=== PATIENT | male | born 1935 | race Caucasian/White ===

== ENCOUNTER 2020-05-11 07:55 | Observation (INO) ==
[2020-05-11] MEDS ORDERED: 0.9 % Sodium Chloride 1,000 ML IVC ONE (08:03)
[2020-05-11 08:44] LABS: Basophils % 0.3 %; Eosinophils # 0.2 K/mcL (0.0-0.6); Eosinophils % 2.5 %; Hemoglobin 11.9 g/dL (12.9-16.9); Immature Granulocytes % 0.4 % (0-4); Lymphocytes # 1.7 K/mcL (0.6-4.6); Lymphocytes % 22.7 %; Mean Corpuscular HGB Conc 32.2 g/dL (31.6-35.5); Mean Corpuscular Hemoglobin 30.9 pg (28.0-33.3); Mean Corpuscular Volume 96.1 fL (83.0-100.0); Mean Platelet Volume 9.7 fL (9.4-12.4); Monocytes # 0.5 K/mcL (0.0-1.3); Neutrophils # 5.2 K/mcL (1.6-8.9); Platelet Count 265 K/mcL (140-400); Red Blood Count 3.85 M/mcL (4.19-5.50); Red Cell Distribution Width 12.6 % (11.5-14.5); Segmented Neutrophils % 68.1 %; White Blood Count 7.6 K/mcL (4.3-11.1)
[2020-05-11 08:45] LABS: VBG HCO3 23 mEq/L (21-27); VBG Ionized Calcium 1.12 mmol/L (1.15-1.35); VBG PCO2 44 mmHg (41-51); VBG PH 7.32 pH Units (7.32-7.42); VBG PO2 30 mmHg (25-50)
[2020-05-11 09:00] LABS: BUN/Creatinine Ratio 18 (6-26); Blood Urea Nitrogen 27 mg/dL (8-23); Calcium 9.2 mg/dL (8.6-10.3); Carbon Dioxide 20 mEq/L (23-29); Chloride 105 mEq/L (98-107); Creatine Kinase 57 Units/L (30-223); Glucose 141 mg/dL (70-105); Magnesium 1.6 mg/dL (1.6-2.6); Osmolality,Calculated 289 (280-300); Phosphorous 3.5 mg/dL (2.7-4.5); Potassium 4.2 mEq/L (3.5-5.1); Sodium 136 mEq/L (136-145); Troponin I < 0.03 ng/mL (< 0.04); eGFR For African Americans 52 (> 60); eGFR For Non-African Americans 43 (> 60)
[2020-05-11 09:07] LABS: Alanine Aminotransferase 10 Units/L (7-52); Albumin 3.7 g/dL (3.5-5.7); Albumin/Globulin Ratio 1.2 (1.1-2.2); Alkaline Phosphatase 60 Units/L (34-104); Aspartate Amino Transferase 18 Units/L (13-39); Bilirubin,Direct 0.1 mg/dL (0.0-0.2); Bilirubin,Indirect 0.4 mg/dL (0.0-1.0); Bilirubin,Total 0.5 mg/dL (0.3-1.0); Globulin 3.2 g/dL (2.4-3.5); Lipase 16 Units/L (11-82); Total Protein 6.9 g/dL (6.4-8.9)
[2020-05-11 09:14] LABS: Thyroid Stimulating Hormone 2.626 mcIU/mL (0.340-5.600)
[2020-05-11 09:15] LABS: Bilirubin,Urine Negative (Negative); Blood,Urine Trace (Negative); Clarity,Urine Clear (Clear); Color,Urine Yellow (Yellow); Glucose,Urine (UA) Normal (Normal); Ketones,Urine Negative (Negative); Leukocyte Esterase,Urine Negative (Negative); Mucus,Urine Few per lpf (None-Few); Nitrite,Urine Negative (Negative); Protein,Urine 70 mg/dL (Neg-Trace); Specific Gravity,Urine 1.023 (1.010-1.025); Squamous Epithelial Cell,Urine Few per hpf (None-Few); Urobilinogen,Urine Normal (Normal); WBC,Urine 0-3 per hpf (0-3)
[2020-05-11] MEDS ORDERED: Naloxone 0.4 MG/ML INJ IVP PRN (11:13)
[2020-05-11] MEDS ORDERED: Ondansetron 4 MG/2 ML VIAL IVP PRN (11:13)
[2020-05-11] MEDS ORDERED: 0.9 % Sodium Chloride 1,000 ML IVC SCH (11:15)
[2020-05-11] MEDS ORDERED: *HR* Dextrose 50 % in Water (Vial) 50 ML VIAL IVP PRN (16:51)
[2020-05-11] MEDS ORDERED: Dextrose Gel 15 GM/37.5 ML TUBE PO PRN ×2 (16:51)
[2020-05-11] MEDS ORDERED: D5% in Water 1,000 ML IVC PRN (16:51)
[2020-05-11] MEDS ORDERED: *HR* Heparin 5,000 UNIT/ML VIAL SQ SCH (18:00)
[2020-05-11] MEDS ORDERED: Insulin DETEMIR 100 UNIT/ML X5UNITS SUBQ SCH (21:00)
[2020-05-11] MEDS: Apixaban 2.5 MG TABLET PO SCH (21:01)
[2020-05-12 06:04] LABS: Basophils % 0.5 %; Eosinophils # 0.3 K/mcL (0.0-0.6); Eosinophils % 4.6 %; Hematocrit 35.1 % (37.5-50.1); Hemoglobin 11.3 g/dL (12.9-16.9); Immature Granulocytes % 0.4 % (0-4); Lymphocytes # 2.2 K/mcL (0.6-4.6); Lymphocytes % 39.5 %; Mean Corpuscular HGB Conc 32.2 g/dL (31.6-35.5); Mean Corpuscular Hemoglobin 30.5 pg (28.0-33.3); Mean Corpuscular Volume 94.6 fL (83.0-100.0); Mean Platelet Volume 10.2 fL (9.4-12.4); Monocytes # 0.5 K/mcL (0.0-1.3); Monocytes % 9.3 %; Neutrophils # 2.6 K/mcL (1.6-8.9); Platelet Count 237 K/mcL (140-400); Red Blood Count 3.71 M/mcL (4.19-5.50); Red Cell Distribution Width 12.3 % (11.5-14.5); Segmented Neutrophils % 45.7 %; White Blood Count 5.7 K/mcL (4.3-11.1)
[2020-05-12 06:46] LABS: BUN/Creatinine Ratio 22 (6-26); Blood Urea Nitrogen 25 mg/dL (8-23); Calcium 8.9 mg/dL (8.6-10.3); Carbon Dioxide 22 mEq/L (23-29); Chloride 105 mEq/L (98-107); Glucose 88 mg/dL (70-105); Magnesium 1.6 mg/dL (1.6-2.6); Osmolality,Calculated 282 (280-300); Potassium 4.1 mEq/L (3.5-5.1); Sodium 134 mEq/L (136-145); eGFR For African Americans > 60 (> 60); eGFR For Non-African Americans 60 (> 60)
[2020-05-12] MEDS: Insulin LISPRO 300 UNITS/3 ML VIAL SUBQ SCH ×2 (07:26→12:04)
[2020-05-12] MEDS ORDERED: amLODIPine 5 MG TABLET PO SCH (09:00)
[2020-05-12] MEDS: Apixaban 2.5 MG TABLET PO SCH (09:26)
[2020-05-12 10:53] VITALS: BP 95/58
== END 2020-05-12 12:30 | disposition home or self-care (01) ==
LOC: 2NENU 07:55 → EMEROOARM 07:55 → SUATTDRO 10:54 → 2NENU 11:56
PROVIDERS: ADMIT Internal Medicine; ATTEND Internal Medicine